=== PATIENT | female | born 1955 | race American Indian/Alaskan Native ===

== ENCOUNTER 2018-02-09 09:17 | Outpatient (CLI) | payer BC ==
--- NOTE | 2018-02-09 11:50 | Ultrasound Report ---
ULTRASOUND EXTREMITY NONVASCULAR LEFT INDICATION: Left arm mass. COMPARISON: None similar. FINDINGS: Longitudinal and transverse grayscale and color-flow sonographic evaluation of the area of concern/swelling along the left distal forearm demonstrates a 2 x 1 cm superficial echogenic ovoid mass with minimal intrinsic blood flow. CONCLUSION: Probable lipoma along the left distal forearm sonographically, as described. Please also correlate clinically. Thank you for the opportunity to participate in this patient's care.
== END 2018-02-09 09:18 | disposition home or self-care (01) ==
LOC: US 09:17
PROVIDERS: ATTEND Internal Medicine
DX: R22.32 Localized swelling, mass and lump, left upper limb (principal)

== ENCOUNTER 2019-09-10 10:40 | Outpatient (CLI) | payer MEDICARE ==
--- NOTE | 2019-09-10 12:18 | XRay Report ---
CHEST 2 VIEWS INDICATION: R05 CHRONIC COUGH. COMPARISON: 08/01/2015 FINDINGS: Support devices: None. Heart: Within normal limits. Pulmonary vasculature: Normal. Lungs/pleura: No acute air space or interstitial disease. No pneumothorax. Additional findings: Elevation of the right hemidiaphragm and degenerative change in the spine are no t significantly changed compared to the previous exam. IMPRESSION: 1. No acute findings. 2. Chronic elevation of the right hemidiaphragm. 3. Thoracic spondylosis. Signer Name: Ru De Leon MD Signed: 09/10/2019 12:14 PM Workstation Name: [id number]
--- NOTE | 2019-09-11 11:44 | Mammography Report ---
DIGITAL SCREENING MAMMOGRAM WITH CAD, 09/10/2019 INDICATION: Routine screening mammography. TECHNIQUE: Digital bilateral 2D mammography was obtained in the craniocaudal and mediolateral obliq ue projections. This examination was interpreted with the benefit of Computer-Aided Detection analysi s. COMPARISON: 09/08/2018 FINDINGS: Breast Density: There are scattered areas of fibroglandular density. There is no evidence of dominant mass, suspicious calcifications or architectural distortion in eithe r breast. IMPRESSION: No mammographic evidence of malignancy. Follow up recommendation: Routine yearly BI-RADS Category 1: Negative. A "normal" or negative report should not discourage follow up or biopsy of a clinically significant f inding. A written summary of these findings will be mailed to the patient. The patient will be entered into a mammography reporting system which will generate a reminder letter for the patient's next appointmen t at the appropriate interval. The [employer] recommends yearly mammograms starting at age 40 and continuing as l kiah as a woman is in good health. Breast MRI is recommended for women with an approximate 20-25% or greater lifetime risk of breast cancer, including women with a strong family history of breast or ova wilfred cancer or who have been treated for Hodgkin's disease. Signer Name: Ru De Leon MD Signed: 09/11/2019 11:39 AM Workstation Name: [id number]
== END 2019-09-10 10:41 | disposition home or self-care (01) ==
LOC: MAMMO 10:40
PROVIDERS: ATTEND Internal Medicine
DX: Z12.31 Encounter for screening mammogram for malignant neoplasm of breast (principal); R05 Cough; M47.814 Spondylosis without myelopathy or radiculopathy, thoracic region; Q79.1 Other congenital malformations of diaphragm
CPT/HCPCS: 71046; 77067